=== PATIENT | male | born 1980 | race Two or more races ===

== ENCOUNTER → 2017-02-21 | Outpatient (REF) | payer OTHER | LOC: M SFHCLERA 13:29 | PROVIDERS: ATTEND Nurse Practitioner Family | DX: R31.9 Hematuria, unspecified (principal) ==

== ENCOUNTER → 2018-03-23 | Outpatient (CLI) | payer BC, OTHER | LOC: M LRY 11:35 | DX: R22.1 Localized swelling, mass and lump, neck (principal) | CPT/HCPCS: 76536 ==